=== PATIENT | male | born 1945 | race Caucasian/White ===

== ENCOUNTER 2018-11-18 15:08 | Emergency (ER) | payer OTHER ==
[~2018-11-18] VITALS: Ht 188 cm; Wt 154.2 kg
[2018-11-18 16:14] LABS: ABSOLUTE NEUTROPHILS 3.7 thou/uL (1.4-8.2); BASOPHILS 0.8 % (0.0-2.0); EOSINOPHILS 6.6 % (0.0-3.0); HEMATOCRIT 49.7 % (42.0-52.0); HEMOGLOBIN 16.7 gm/dL (14.0-18.0); LYMPHOCYTES 28.2 % (24.0-44.0); MCH 28.1 pg (26.0-34.0); MCHC 33.5 g/dL (28.0-37.0); MCV 83.8 fL (80.0-100.0); MONOCYTES 11.8 % (1.0-8.0); PLATELET COUNT 180 thou/uL (150-400); POLYS 52.6 % (36.0-66.0); RBC 5.93 mil/uL (4.50-6.00); RDW 17.1 % (10.5-14.5); WBC 7.1 thou/uL (4.0-11.0)
[2018-11-18 16:21] LABS: ANION GAP 9 mmol/L (7-16); BUN 13 mg/dL (7-18); CALCIUM 9.5 mg/dL (8.5-10.1); CHLORIDE 105 mmol/L (98-107); CO2 28 mmol/L (21-32); CREATININE 1.1 mg/dL (0.7-1.3); GLUCOSE 106 mg/dL (74-106); POTASSIUM 4.1 mmol/L (3.5-5.1); SODIUM 142 mmol/L (136-145)
[2018-11-18 16:32] LABS: ALBUMIN 3.8 g/dL (3.4-5.0); MAGNESIUM 2.3 mg/dL (1.8-2.4); SGOT 18 U/L (15-37); SGPT 22 U/L (30-65); TOTAL BILIRUBIN 1.6 mg/dL (<0.1-1.0); TOTAL PROTEIN 7.5 g/dL (6.4-8.2); TROPONIN-I <0.06 ng/mL (<0.06)
[2018-11-18 16:51] LABS: SALICYLATE < 2.8 mg/dL (2.8-20.0)
[2018-11-18] MEDS ORDERED: TRAMADOL 50 MG50 MG PO (17:21)
[2018-11-18] MEDS ORDERED: NAPROSYN500 MG PO (17:21)
[2018-11-18 17:23] LABS: URINE BILIRUBIN NEGATIVE (Negative); URINE BLOOD NEGATIVE (Negative); URINE CLARITY CLEAR; URINE COLOR YELLOW; URINE GLUCOSE-RANDOM* NEGATIVE (Negative); URINE KETONES NEGATIVE (Negative); URINE LEUKOCYTES-REFLEX NEGATIVE (Negative); URINE NITRITE-REFLEX NEGATIVE (Negative); URINE PROTEIN (DIPSTICK) TRACE (Negative); URINE UROBILINOGEN 0.2 E.U./dl (0.2-1.0)
[2018-11-18 17:31] VITALS: BP 172/101
[2018-11-18 17:32] LABS: AMP/METHAMP Negative (Negative); BARBITURATES Negative (Negative); BENZODIAZEPINES Negative (Negative); COCAINE Negative (Negative); METHADONE Negative (Negative); OPIATES POSITIVE (Negative); PCP Negative (Negative)
--- NOTE | 2018-11-19 15:56 | EKG ---
[place] [address] [address] [facility] [employer] 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1945 Requested By: José Luis Addison Order Number: [id number] MD: Ace Vega Measurements Intervals [place] Rate: 84 P: -69 TN: 233 QRS: -74 QRSD: 130 T: 89 QT: 390 QTc: 462 Interpretive Statements Sinus or ectopic atrial rhythm Atrial premature complex Prolonged TN interval Left bundle branch block No previous ECG available for comparison Electronically Signed On 11-19-2018 15:56:14 CDT by Ace Vega [email or web address] ��������������������������������������������� <ELECTRONICALLY SIGNED> ���������������������������������������� By: Ace Vega MD ��������������������������������������������� 11/19/18 1556 05 05 Ace Vega MD /RAUL
--- NOTE | 2018-11-20 09:27 | HC ---
[facility] [address] [address] CONSULTATION Name: ASHWIN ROLLINS [id number] Admission: 11/18/18 ������������������ Attend Phys: Discharge: 11/18/18 ������������������ Date of : 47 Report #: [id number] THIS REPORT FOR: //name// CC: José Luis ALEGRIA DATE OF SERVICE: 11/18/2018 TIME OF PRESENTATION: Approximately 1600 hours. SOURCE OF INFORMATION: Interview with the patient and interview with his separately. CHIEF COMPLAINT: "I had a really bad day today." HISTORY OF PRESENT ILLNESS: This is a 72-year-old obese male who presents to the Emergency Room for complaints of suicidal ideation. He also notes visual hallucinations when he woke up in the morning and somebody was standing in room. When I asked his if they had accompanied for which she replied "no." That was likely a hypnopompic hallucination by the way. He has a history of chronic back pain as well as chronic dizziness and balance issues. The patient notes his quality of life "sucks I cannot do anything myself." He has had similar feelings of SI before, but not anytime recently. Denies any previous attempts to end his life, but I when asked how he would if he did, he states "I would drive my care into the middle of interstate traffic." About one year ago, the patient admits giving away all of his guns because he was afraid he might use them to attempt suicide. This is the reason his primary care physician prescribed Zoloft, which he admits to me he is noncompliant with. The patient is interested in pain management reporting a 10/10 pain, failed lower back surgery, looks like they will not prescribe him any medications due to his health and body habitus. On interview with his , she states that she is not concerned that he will end his life or harm himself. She states it has been a difficult time. During the interview regarding the issues of possession of weapons in the house, but I felt it was unlikely. Additional information, PCP Dr. Alegria. Suicidal feelings date back approximately 1-2 years. PAST MEDICAL HISTORY: Chronic back pain and morbid obesity, coronary artery bypass graft. He has had colon cancer and GERD. PAST SURGICAL HISTORY: lumbar surgery. ALLERGIES: No known allergies. REVIEW OF SYSTEMS: From the Emergency Room [address] [address] CONSULTATION Name: ASHWIN ROLLINS Room #: DEP ER Ilya#: [id number] Admission: 11/18/18 ������������������ Attend Phys: Discharge: 11/18/18 ������������������ Date of : 47 Report #: [id number] CONSTITUTIONAL: Denies. MENTAL STATUS EXAMINATION: A well-developed, well-nourished, morbidly obese male, recumbent on the Emergency Room gurney. EYES: Denies eye pain, visual change or discharge. HENT: Denies hearing changes, ear drainage, ear infections, ear pain. NECK: No stiffness. RESPIRATORY: Denies cough, shortness of breath, hemoptysis, or respiratory distress. CARDIOVASCULAR: Denies chest pain, exertional, does endorse some edema of the lower extremities. GASTROINTESTINAL: Denies abdominal pain, nausea, vomiting, or diarrhea. GENITOURINARY: Denies burning, frequency, or dysuria. MUSCULOSKELETAL: pain 8-10/10 in back. . SKIN: Denies rash. NEUROLOGIC: Denies weakness, headache, loss of consciousness. Otherwise, a 10-point review of systems is negative except for the psychiatric disease related above. PHYSICAL EXAMINATION: VITAL SIGNS: BP 154/102, pulse ox 95%, Temperature 37.0, pulse 96, and respirations 19. LABORATORY DATA: Left bundle branch block performed since EKG was done in 2008, first-degree AV block noted on EKG. BNP 338. Sodium 142, potassium 4.1, chloride 105, bicarbonate 28, anion gap 9, BUN 13, creatinine 0.1, estimated GFR 66, glucose 106, calcium 10.1, glucose 106, calcium 9.5, magnesium 2.3, total bilirubin slightly high at 1.6, AST 18, ALT 22, alkaline phosphatase 78. First troponin negative. NT-proBNP high at 338. CBC today, white count 7.1, H and H 16.7 and 49.7, platelet count 180,000. UDS was completed rather. He is a well-developed, morbidly obese male appearing at least stated age. Attention intact. Concentration intact. Speech is normal in rate and volume. Thought process is linear and goal directed. Thought content focused on the future. Denied SI, denied HI. Memory noted to be impaired to limited. Judgment limited. Fund of knowledge average formulation. Assesment: Major Depressive Disorder, recurrent, moderAte degreee Aclohol Abuse Chronic Pain liklely Mild Neurocognitive Disorder Recs: Avoid Alcohol Medication to be administered by as patient has been non compliant with Sertraline. [facility] [address] [place] [address] CONSULTATION Name: ASHWIN ROLLINS Room #: DEP Ranjan#: [id number] Admission: 11/18/18 ������������������ Attend Phys: Discharge: 11/18/18 ������������������ Date of : 47 Report #: [id number] Pt not currently meeting inpatient psychiatric hospitalization criteria as he is not actively suicidal and has safe living arrangement and assistance. I would recommend consideration be given to patient goign to a pain mgmt clinic and outpaitent psychotherpay at [facility]. If things do not improve, patient will need a fpc care placement. Cassie HiltonO. ��������������������������������������������� <ELECTRONICALLY SIGNED> ���������������������������������������� By: Moisés Denis DO ��������������������������������������������� 11/20/18 0927 [id number] [id number] Moisés Denis DO /nt
== END 2018-11-18 17:32 | disposition home or self-care (01) ==
LOC: EDBD 15:08 → ER 15:08
PROVIDERS: Emergency Medicine
DX: F32.9 Major depressive disorder, single episode, unspecified (principal); R45.851 Suicidal ideations; M54.9 Dorsalgia, unspecified; G89.29 Other chronic pain; R60.0 Localized edema; E80.7 Disorder of bilirubin metabolism, unspecified; Z91.14 Patient's other noncompliance with medication regimen; K21.9 Gastro-esophageal reflux disease without esophagitis; Z85.038 Personal history of other malignant neoplasm of large intestine

== ENCOUNTER 2018-12-16 19:15 | Inpatient (IN) | payer OTHER ==
[~2018-12-16] VITALS: Ht 190.5 cm; Wt 150.6 kg
[2018-12-16 19:15] VITALS: BP 155/105
[~2018-12-16 19:15] MED LIST: NAPROSYN500 MG PO; TRAMADOL 50 MG50 MG PO
[2018-12-16 19:27] LABS: ABSOLUTE NEUTROPHILS 3.8 thou/uL (1.4-8.2); BASOPHILS 1.2 % (0.0-2.0); EOSINOPHILS 6.6 % (0.0-3.0); HEMATOCRIT 47.9 % (42.0-52.0); HEMOGLOBIN 16.3 gm/dL (14.0-18.0); LYMPHOCYTES 27.3 % (24.0-44.0); MCH 28.8 pg (26.0-34.0); MCHC 33.9 g/dL (28.0-37.0); MONOCYTES 9.4 % (1.0-8.0); PLATELET COUNT 207 thou/uL (150-400); POLYS 55.5 % (36.0-66.0); RBC 5.64 mil/uL (4.50-6.00); WBC 6.8 thou/uL (4.0-11.0)
[2018-12-16] MEDS ORDERED: ZOLOFT50 MG PO (19:34)
[2018-12-16] MEDS ORDERED: LISINOPRIL40 MG PO (19:35)
[2018-12-16] MEDS ORDERED: FLONASE 0.05%50 MCG NASAL (19:35)
[2018-12-16] MEDS ORDERED: NORVASC10 MG PO (19:35)
[2018-12-16] MEDS ORDERED: CLARITIN10 MG PO (19:35)
[2018-12-16] MEDS ORDERED: ANTIVERT25 MG PO (19:35)
[2018-12-16] MEDS ORDERED: AMBIEN 5 MG TABL5 M1 PO (19:35)
[2018-12-16] MEDS ORDERED: NYAMYC15 GM TOP (19:36)
[2018-12-16] MEDS ORDERED: ALBUTEROL2.5 MG/31 INH (19:36)
[2018-12-16] MEDS ORDERED: PROTONIX40 M1 PO ×2 (19:36)
[2018-12-16] MEDS ORDERED: IRON325 PO (19:36)
[2018-12-16] MEDS ORDERED: LOSARTAN POTASS50 MG PO (19:36)
[2018-12-16] MEDS ORDERED: LOPRESSOR50 PO (19:37)
[2018-12-16] MEDS ORDERED: SYMBICORT160 MCG/4. INH (19:37)
[2018-12-16] MEDS ORDERED: VANQUISH CAPLE1 EACH PO (19:37)
[2018-12-16] MEDS ORDERED: VENTOLIN HFA 1818 GM INH (19:37)
[2018-12-16] MEDS ORDERED: NEURONTIN 300300 M1 PO (19:37)
[2018-12-16 19:39] LABS: ANION GAP 7 mmol/L (7-16); BUN 18 mg/dL (7-18); CALCIUM 9.1 mg/dL (8.5-10.1); CHLORIDE 104 mmol/L (98-107); CO2 29 mmol/L (21-32); CREATININE 1.2 mg/dL (0.7-1.3); GLUCOSE 98 mg/dL (74-106); POTASSIUM 4.3 mmol/L (3.5-5.1); SODIUM 140 mmol/L (136-145)
[2018-12-16 19:50] LABS: TROPONIN-I <0.06 ng/mL (<0.06)
[2018-12-16] MEDS ORDERED: ASPIRIN EC325 M1 PO (21:43)
[2018-12-16 22:42] VITALS: BP 158/90
[2018-12-16 22:52] VITALS: BP 140/97
[2018-12-16 23:27] VITALS: BP 200/124
[2018-12-17 00:53] LABS: URINE BILIRUBIN NEGATIVE (Negative); URINE BLOOD NEGATIVE (Negative); URINE CLARITY CLEAR; URINE COLOR YELLOW; URINE GLUCOSE-RANDOM* NEGATIVE (Negative); URINE KETONES NEGATIVE (Negative); URINE LEUKOCYTES NEGATIVE (Negative); URINE NITRITE NEGATIVE (Negative); URINE PROTEIN (DIPSTICK) NEGATIVE (Negative); URINE SPECIFIC GRAVITY 1.015 (1.005-1.035); URINE UROBILINOGEN 0.2 E.U./dl (0.2-1.0)
[2018-12-17 04:45] VITALS: BP 148/94
--- NOTE | 2018-12-17 05:35 | NUR ---
PT ADMIT FROM ER. GAVE 40MG LASIX PER POC. PLACED EXTERNAL CATH. PT HAD 1750ML OUT. PT ON CPAP FOR SLEEP APNEA. PT HAVING SOME CONFUSION AND NOT BEING ABLE TO URINATE INTO THE URINAL. PT VERY UNSTABLE AND X1 WITH A WALKER. BLLE +2 EDEMA THAT IS WARM. HOURLY ROUNDING.
[2018-12-17 07:13] VITALS: BP 158/102
--- NOTE | 2018-12-17 08:24 | EKG ---
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 12/17/18823 24 24 Ammon Maciel MD, [facility] /EPI
--- NOTE | 2018-12-17 08:26 | EKG ---
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 12/17/18825 37 37 Ammon Maciel MD, [facility] /EPI
[2018-12-17 10:44] LABS: BE(vivo) 0.1 mmol/L (-2 to +3); PO2 75.7 mmHg (80.0-100.0); pH 7.429 (7.360-7.450); sO2 95.6 % (92.0-98.0)
--- NOTE | 2018-12-17 10:55 | NUR ---
RD consult received to discuss healthy diet. Admit with afib, ?CHF. Pt with class III extreme obesity, BMI 41.5. CPAP for sleep apnea, and BLLE 2+ identified. Required 1 dose lasix. Good appetite. Pleasant conversation, but disinterested in 2g Na information, changing topic frequently. Encouraged small changes to benefit health. Low nutrition risk
--- NOTE | 2018-12-17 13:44 | 2DMMODE ---
[facility] [address] [facility] [place] [address] 2 D/M-MODE ECHOCARDIOGRAM Name: ASHWIN ROLILNS Room #: 357-P ADM IN .R.#: [id number] Admission: 12/16/18 Attend Phys: Jairon Briones, Discharge: Date of : 47 Date of Service: 12/17/18 1344 Report #: [id number] THIS REPORT FOR: //name// APPROVED REPORT Study performed: 12/17/2018 12:50:46 EXAM: Comprehensive 2D, Doppler, and color-flow Echocardiogram Patient Location: Bedside Room #: 357 Status: routine BSA: 2.72 HR: 82 bpm BP: 158/102 mmHg Rhythm: Atrial Fibrillation Other Information Study Quality: Fair Indications COPD Atrial Fibrillation Dyspnea CAD Hypertension/HDD 2D Dimensions RVDd: 53.67 mm IVSd: 14.95 (7-11mm) LVOT Diam: 24.43 (18-24mm) LVDd: 49.76 mm PWd: 13.92 (7-11mm) Ascending Ao: 45.06 (22-36mm) LVDs: 34.75 (25-40mm) Aortic Root: 46.37 mm IVC: 21.00 mm Volumes Left Atrial Volume (Systole) Single Plane 2CH: 70.19 mL Aortic Valve AoV Peak Talon.: 0.79 m/s AO Peak Gr.: 3.02 mmHg LVOT Max P.43 mmHg LVOT Max V: 0.78 m/s ENOC Vmax: 4.61 cm2 Pulmonary Valve [facility] [address] [place] [address] 2 D/M-MODE ECHOCARDIOGRAM Name: ASHWIN ROLLINS Room #: 357-P [facility]#: [id number] Admission: 12/16/18 Attend Phys: Jairon Briones, Discharge: Date of : 47 Date of Service: 12/17/18 1344 Report #: [id number] PV Peak Talon.: 0.67 m/s PV Peak Gr.: 1.79 mmHg Tricuspid Valve TR Peak Talon.: 2.26 m/s TR Peak Gr.: 20.61 mmHg PA Pressure: 31.00 mmHg Left Ventricle The left ventricle is normal size. There is normal LV segmental wall motion. Moderate concentric left ventricular hypertrophy. The left ventricular systolic function is normal. The left ventricular ejection fraction is within the normal range. LVEF is 55-60%. This study is not technically sufficient to allow evaluation of the LV diastolic function due to atrial fibrillation. Right Ventricle Right ventricle is dilated. The right ventricular systolic function is normal. Atria Left atrium is dilated. Right atrium is dilated. Aortic Valve The aortic valve is normal in structure. Aortic valve is calcified. Mild aortic regurgitation. There is no aortic valvular stenosis. Mitral Valve The mitral valve is normal in structure. Trace mitral regurgitation. No evidence of mitral valve stenosis. Tricuspid Valve The tricuspid valve is normal in structure. There is mild tricuspid regurgitation. Estimated PAP 31 mmHg. There is mild pulmonary hypertension. Pulmonic Valve The pulmonary valve is normal in structure. There is no pulmonic valvular regurgitation. Great Vessels The aortic root is normal in size. Ascending aorta is dilated. IVC is dilated and collapses <50% with inspiration. Pericardium There is no pericardial effusion. [facility] [address] [place] [address] 2 D/M-MODE ECHOCARDIOGRAM Name: ASHWIN ROLLINS Room #: 357-P [facility] IN M.R.#: [id number] Admission: 12/16/18 Attend Phys: Jairon Briones, Discharge: Date of : 47 Date of Service: 12/17/18 1344 Report #: [id number] <Conclusion> The left ventricle is normal size. LVEF is 55-60%. Right ventricle is dilated. Left atrium is dilated. Right atrium is dilated. The aortic valve is normal in structure. Aortic valve is calcified. Mild aortic regurgitation. The mitral valve is normal in structure. Trace mitral regurgitation. The tricuspid valve is normal in structure. There is mild tricuspid regurgitation. Estimated PAP 31 mmHg. There is mild pulmonary hypertension. The pulmonary valve is normal in structure. Ascending aorta is dilated. There is no pericardial effusion. <ELECTRONICALLY SIGNED> By: Francisco Hernández MD 12/17/18 1344 1344 1344 Francisco Hernández MD /INF
--- NOTE | 2018-12-17 14:43 | NUR ---
ASSESSMENT: CM REVIEWED CHART AND MET WITH PATIENT AT THE BEDSIDE ALONG WITH HIS . PT REPORTS LIVING IN A PATIO HOUSE THROUGH [facility]. PT REPORTS THEY HAVE NO STEPS TO ENTER THE HOME OR ONCE INSIDE. PT REPORTS HE AMBULATES WITH A WALKER. PT REPORTS HE ALSO HAS A CPAP AT HOME. PT REPORTS HAVING A GRAB BAR AND A SHOWER CHAIR. PT REPORTS BEING IN SERVICES WITH [facility]. CM CONTACTED [facility] AND NOTIFIED THEM PATIENT IS HERE AND FAXED UPDATED CLINICAL. PT ANTICIPATES DISCHARGING BACK HOME WITH [facility] AT DISCHARGE. CM WILL CONTINUE TO FOLLOW TO ASSIST NEEDED.
[2018-12-17 15:06] LABS: ANION GAP 8 mmol/L (7-16); BUN 15 mg/dL (7-18); CALCIUM 9.3 mg/dL (8.5-10.1); CHLORIDE 104 mmol/L (98-107); CHOLESTEROL 174 mg/dL (<200); CO2 29 mmol/L (21-32); CREATININE 1.1 mg/dL (0.7-1.3); GLUCOSE 78 mg/dL (74-106); HDL CHOLESTEROL 34 mg/dL (>40); LDL CHOLESTEROL 97 mg/dL (<100); SODIUM 141 mmol/L (136-145); TC:HDL 5.1 Ratio (Not establshd); TRIGLYCERIDE 218 mg/dL (<150); VLDL 44 mg/dL (<40)
[2018-12-17 15:37] VITALS: BP 140/103
--- NOTE | 2018-12-17 18:30 | NUR ---
pt is A&O X3, Pt's vs are stable, but pt has some sob with activities, pt sits at bedside with meals, pt is relaxing now.
[2018-12-17 19:26] VITALS: BP 148/78
--- NOTE | 2018-12-18 03:22 | NUR ---
PATIENT IS PROGRESSING SLOWLY IN HIS CARE PLAN. VITAL SIGNS STABLE WITH PATIENT HAVING NO COMPLAINTS OF PAIN OR NAUSEA. MOSTLY ORIENTED, PATIENT CAN BE CONFUSED AND FORGETFUL AT TIMES. BREATHING STABLE EVIDENCED BY SPOT OXYGENATION CHECKS AND CONTINUOUS SATURATION MONITOR OVERNIGHT WHILE WEARING CPAP. PATIENT STAYED ON CPAP FOR MOST OF THE NIGHT. UP MULTIPLE TIMES TO BEDSIDE COMMODE WITH ASSISTANCE INCIDENT FREE. PATIENT IS A HIGH FALL RISK. CONTINUE PLAN OF CARE.
[2018-12-18 04:02] VITALS: BP 159/94
[2018-12-18 06:19] LABS: HEMATOCRIT 49.3 % (42.0-52.0); HEMOGLOBIN 16.5 gm/dL (14.0-18.0); MCH 28.8 pg (26.0-34.0); MCHC 33.4 g/dL (28.0-37.0); MCV 86.2 fL (80.0-100.0); RBC 5.72 mil/uL (4.50-6.00); RDW 16.2 % (10.5-14.5); WBC 6.3 thou/uL (4.0-11.0)
[2018-12-18 06:29] LABS: CALCIUM 9.5 mg/dL (8.5-10.1); CREATININE 1.1 mg/dL (0.7-1.3); POTASSIUM 4.6 mmol/L (3.5-5.1)
--- NOTE | 2018-12-18 07:52 | EKG ---
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
[2018-12-18 08:13] VITALS: BP 151/105
--- NOTE | 2018-12-18 11:04 | NUR ---
pt's assessment has done, pt is A&O3, but pt is confused sometimes, pt is fall risk, pt's vs are stable, pt has sob at activities, pt denies pain and n/v at this time, pt needs help to gets up with walker to bathroom , pt has slowly meeting care plan goals.
[2018-12-18 15:13] VITALS: BP 129/78
[2018-12-18 19:59] VITALS: BP 111/76
[2018-12-19 04:08] VITALS: BP 144/92
--- NOTE | 2018-12-19 04:15 | NUR ---
PATIENT IS ADVANCING IN HIS CARE PLAN. VITAL SIGNS STABLE WITH PATIENT HAVING NO COMPLAINTS OF NAUSEA. PATIENT DID COMPLAIN OF PAIN IN BACK EARLY IN SHIFT WHICH WAS TREATED APPROPRIATELY BY NURSE WITH MEDICATION AND NON PHARMACOLOGICAL INTERVENTION. MOSTLY ORIENTED, PATIENT IS ABLE TO CALL FOR NEEDS MOST OF TIME. PATIENT IS FORGETFUL AT NIGHT TIME. BREATHING STABLE EVIDENCED BY READINGS ON CONTINUOUS SATURATION MONITOR. PATIENT HAS BEEN UP MULTIPLE TIMES WITH ASSISTANCE INCIDENT FREE. CONTINUE PLAN OF CARE.
[2018-12-19 05:49] LABS: CALCIUM 9.4 mg/dL (8.5-10.1); CREATININE 1.2 mg/dL (0.7-1.3); POTASSIUM 3.6 mmol/L (3.5-5.1)
[2018-12-19 07:49] VITALS: BP 144/89
[2018-12-19] MEDS ORDERED: DEMADEX 2020 MG/1 TA PO (13:16)
[2018-12-19] MEDS ORDERED: XARELTO20 MG PO (13:17)
[2018-12-19] MEDS ORDERED: CARDIZEM CD240 MG PO (13:17)
[2018-12-19] MEDS ORDERED: BYSTOLIC10 MG PO (13:18)
[2018-12-19 13:23] VITALS: BP 144/89
--- NOTE | 2018-12-19 15:56 | NUR ---
ASSUMED PATIENT CARE AT 0700. A/O X4. NO SOB NOTED ON RA. PATIENT DENIES PAIN. BLE WITH PERRY WRAP. DC TO HOME WITH CARE.
== END 2018-12-19 15:48 | disposition home health service (06) | DRG 292 ==
LOC: ER 19:15 → 3W 21:50 → EROBS 21:50 → 3W 22:56 → ENTRNSPT 12-19 15:29 → EDTRNSPTSTS 12-19 15:35 → 3W 12-19 15:48
PROVIDERS: Emergency Medicine; Nurse Practitioner; Nurse Practitioner Acute Care; Nurse Practitioner Adult Health; ADMIT Internal Medicine
DX: I11.0 Hypertensive heart disease with heart failure (principal); I48.92 Unspecified atrial flutter; Z68.41 Body mass index [BMI] 40.0-44.9, adult; I50.33 Acute on chronic diastolic (congestive) heart failure; I48.91 Unspecified atrial fibrillation; G89.29 Other chronic pain; M54.9 Dorsalgia, unspecified; K21.9 Gastro-esophageal reflux disease without esophagitis; F32.9 Major depressive disorder, single episode, unspecified; E87.70 Fluid overload, unspecified; G47.33 Obstructive sleep apnea (adult) (pediatric); R63.4 Abnormal weight loss; J44.9 Chronic obstructive pulmonary disease, unspecified; E78.5 Hyperlipidemia, unspecified; Z86.711 Personal history of pulmonary embolism; Z95.1 Presence of aortocoronary bypass graft; Z85.038 Personal history of other malignant neoplasm of large intestine; Z87.891 Personal history of nicotine dependence; Z88.6 Allergy status to analgesic agent; Z88.8 Allergy status to other drugs, medicaments and biological substances; Z79.82 Long term (current) use of aspirin; Z79.899 Other long term (current) drug therapy
CPT/HCPCS: 10879